=== PATIENT | male | born 1965 | race Caucasian/White ===

== ENCOUNTER 2018-03-13 09:08 | Emergency (ER) | payer OTHER ==
[~2018-03-13] VITALS: Ht 175.3 cm; Wt 105.7 kg
[~2018-03-13 09:08] MED LIST: ACETAMINOPHEN-1 EAC1 PO; CIPRO250 M1 PO; FLOMAX0.4 MG PO; IBUPROFEN 800800 M1 PO; KEFLEX500 MG PO; LATUDA20 MG PO; NOHOMEMEDICATIONS; OSELB75 PO; PERCOCET 5-3251 EACH PO; PROMETHAZINE D480 ML PO; TESSALON PERLE100 MG PO; ZOFRAN ODT4 MG PO
[2018-03-13 09:31] LABS: ABSOLUTE BASOPHILS 0.1 thou/uL (0.0-0.2); ABSOLUTE EOSINOPHILS 0.3 thou/uL (0.0-0.7); ABSOLUTE MONOCYTES 0.7 thou/uL (0.0-1.2); ABSOLUTE NEUTROPHILS 3.6 thou/uL (1.6-8.1); EOSINOPHILS 4.3 %; HEMATOCRIT 44.7 % (42.0-52.0); HEMOGLOBIN 15.6 gm/dL (14.0-18.0); LYMPHOCYTES 30.2 %; MCH 32.2 pg (26.0-34.0); MCHC 34.9 g/dL (28.0-37.0); MCV 92.2 fL (80.0-100.0); MPV 7.2 fl. (7.2-11.1); NUCLEATED RBCS 0 /100WBC; PLATELET COUNT* 188 thou/uL (150-400); POLYS 54.5 %; RBC 4.85 mil/uL (4.50-6.00); RDW-CV 12.9 % (10.5-14.5); WBC 6.7 thou/uL (4.0-11.0)
[2018-03-13 09:36] LABS: ANION GAP 9 mmol/L (7-16); BUN 19 mg/dL (7-18); CALCIUM 8.8 mg/dL (8.5-10.1); CHLORIDE 105 mmol/L (98-107); CO2 26 mmol/L (21-32); GLUCOSE 115 mg/dL (70-99); POTASSIUM 5.2 mmol/L (3.5-5.1); SODIUM 140 mmol/L (136-145)
[2018-03-13 09:43] LABS: ALBUMIN 3.9 g/dL (3.4-5.0); ALKALINE PHOSPHATASE 80 U/L (46-116); SGOT 26 U/L (15-37); SGPT 19 U/L (30-65); TOTAL BILIRUBIN 0.6 mg/dL (<0.1-1.0); TROPONIN-I LEVEL <0.06 ng/mL (<0.06)
[2018-03-13] MEDS ORDERED: AUGMENTIN 875-1 EACH PO (10:19)
[2018-03-13] MEDS ORDERED: ANTIVERT25 MG PO (10:19)
[2018-03-13 10:58] VITALS: BP 124/88
--- NOTE | 2018-03-14 13:26 | EKG ---
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: Bailey RODAS : 1965 Requested By: Edy Johnson Order Number: [id number] MD: Jone Sierra Measurements Intervals [place] Rate: 87 P: 52 VT: 154 QRS: -33 QRSD: 84 T: 44 QT: 369 QTc: 444 Interpretive Statements Sinus rhythm Left axis deviation Abnormal R-wave progression, late transition No previous ECG available for comparison Electronically Signed On 03-14-2018 13:25:53 CDT by Jone Sierra [email or web address] <ELECTRONICALLY SIGNED> By: Jone Sierra MD, MERGED WITH [facility] 03/14/18 1325 0910 9 Jone Sierra MD, FACC /EPI
== END 2018-03-13 10:59 | disposition home or self-care (01) ==
LOC: M.ERS 09:08
PROVIDERS: Emergency Medicine Emergency Medical Services
DX: H66.92 Otitis media, unspecified, left ear (principal); F20.0 Paranoid schizophrenia

== ENCOUNTER → 2018-07-31 | Outpatient (CLI) | payer OTHER ==
[~2018-07-31] MED LIST changes: +ANTIVERT25 MG PO; +AUGMENTIN 875-1 EACH PO
[2018-07-31 17:21] LABS: ABSOLUTE EOSINOPHILS 0.2 thou/uL (0.0-0.7); ABSOLUTE LYMPHOCYTES 2.4 thou/uL (0.8-5.3); ABSOLUTE MONOCYTES 0.6 thou/uL (0.0-1.2); ABSOLUTE NEUTROPHILS 4.2 thou/uL (1.6-8.1); BASOPHILS 0.6 %; EOSINOPHILS 2.3 %; HEMATOCRIT 41.9 % (42.0-52.0); HEMOGLOBIN 14.7 gm/dL (14.0-18.0); LYMPHOCYTES 32.4 %; MCV 91.4 fL (80.0-100.0); MONOCYTES 7.9 %; MPV 7.8 fl. (7.2-11.1); NUCLEATED RBCS 0 /100WBC; PLATELET COUNT* 210 thou/uL (150-400); POLYS 56.8 %; RBC 4.58 mil/uL (4.50-6.00); RDW-CV 12.7 % (10.5-14.5); WBC 7.5 thou/uL (4.0-11.0)
[2018-07-31 17:32] LABS: ALBUMIN 3.9 g/dL (3.4-5.0); ALKALINE PHOSPHATASE 72 U/L (46-116); ANION GAP 9 mmol/L (7-16); BUN 19 mg/dL (7-18); CALCIUM 8.6 mg/dL (8.5-10.1); CHLORIDE 105 mmol/L (98-107); CHOLESTEROL 137 mg/dL (<200); CO2 26 mmol/L (21-32); GLUCOSE 90 mg/dL (70-99); HDL CHOLESTEROL 30 mg/dL (>40); LDL CHOLESTEROL 45 mg/dL (<100); MAGNESIUM 1.8 mg/dL (1.8-2.4); POTASSIUM 4.1 mmol/L (3.5-5.1); SGOT 10 U/L (15-37); SGPT 21 U/L (30-65); SODIUM 140 mmol/L (136-145); TC:HDL 4.6 Ratio (Not establshd); TOTAL BILIRUBIN 0.3 mg/dL (<0.1-1.0); TOTAL PROTEIN 7.4 g/dL (6.4-8.2); TRIGLYCERIDE 312 mg/dL (<150); VLDL 62 mg/dL (<40)
[2018-07-31 17:52] LABS: SERUM ASSESSMENT Clear
[2018-08-01 03:09] LABS: GLYCOHEMOGLOBIN (HGB A1C) 5.1 % (4.8-5.6)
[2018-08-01 08:02] LABS: URINE BILIRUBIN NEGATIVE (Negative); URINE BLOOD NEGATIVE (Negative); URINE CLARITY SL CLOUDY; URINE COLOR YELLOW; URINE GLUCOSE-RANDOM NEGATIVE (Negative); URINE KETONES NEGATIVE (Negative); URINE LEUKOCYTES-REFLEX NEGATIVE (Negative); URINE NITRITE-REFLEX NEGATIVE (Negative); URINE PROTEIN NEGATIVE (Negative); URINE SPECIFIC GRAVITY >= 1.030 (1.005-1.030); URINE UROBILINOGEN 0.2 E.U./dl (0.2-1.0)
[2018-08-01 08:08] LABS: BACTERIA-REFLEX 1-9 Few /HPF (None Seen); CASTS None Seen /LPF (None Seen); MUCUS 0-3 Light strn/LPF (None Seen); SQUAMOUS 0-3 Few /LPF (0-3); URINE RBC 0-2 Rare /HPF (0-2); URINE WBC-REFLEX 0-5 Rare /HPF (0-5)
[2018-08-01 08:09] LABS: AMORPHOUS URATES Many /LPF (None Seen)
[2018-08-01 08:29] LABS: DIRECT BILIRUBIN 0.1 mg/dL (<0.1-0.3); PHOSPHORUS* 3.5 mg/dL (2.5-4.9)
[2018-08-01 19:07] LABS: T3 UPTAKE 24 % (24-39)
== END ==
LOC: M.LAB 16:03
PROVIDERS: Internal Medicine
DX: Z00.01 Encounter for general adult medical examination with abnormal findings (principal); G47.33 Obstructive sleep apnea (adult) (pediatric); R53.82 Chronic fatigue, unspecified

== ENCOUNTER → 2019-02-19 | Outpatient (CLI) | payer OTHER | LOC: M.RAD 10:24 | DX: R05 Cough (principal); R53.83 Other fatigue ==

== ENCOUNTER → 2020-01-15 | Outpatient (CLI) | payer OTHER | LOC: M.LAB 14:07 | DX: Z20.828 Contact with and (suspected) exposure to other viral communicable diseases (principal) ==

== ENCOUNTER 2020-04-13 20:46 | Emergency (ER) | payer OTHER ==
[~2020-04-13] VITALS: Ht 177.8 cm; Wt 103.4 kg
[2020-04-13] MEDS ORDERED: MELOXICAM7.5 MG PO (20:59)
[2020-04-13] MEDS ORDERED: CLONAZEPAM 0.50.5 M1 PO (21:14)
[2020-04-13] MEDS ORDERED: TYLENOL WITH CO1 TA1 PO (22:24)
[2020-04-13 22:33] VITALS: BP 122/67
== END 2020-04-13 22:33 | disposition home or self-care (01) ==
LOC: M.ERS 20:46
DX: S93.492A Sprain of other ligament of left ankle, initial encounter (principal); X50.1XXA Overexertion from prolonged static or awkward postures, initial encounter; Y93.89 Activity, other specified; Y92.89 Other specified places as the place of occurrence of the external cause; Y99.8 Other external cause status

== ENCOUNTER 2020-08-01 13:33 | Inpatient (IN) | payer OTHER ==
[~2020-08-01] VITALS: Ht 177.8 cm; Wt 101.2 kg
[~2020-08-01 13:33] MED LIST changes: +CLONAZEPAM 0.50.5 M1 PO; +MELOXICAM7.5 MG PO; +TYLENOL WITH CO1 TA1 PO
[2020-08-01 14:24] VITALS: BP 106/68
[2020-08-01] MEDS ORDERED: MOBIC7.5 MG PO (14:28)
[2020-08-01 15:08] LABS: ABSOLUTE EOSINOPHILS 0.2 thou/uL (0.0-0.7); ABSOLUTE LYMPHOCYTES 2.2 thou/uL (0.8-5.3); ABSOLUTE MONOCYTES 0.8 thou/uL (0.0-1.2); ABSOLUTE NEUTROPHILS 7.3 thou/uL (1.6-8.1); BASOPHILS 0.4 %; EOSINOPHILS 1.4 %; HEMATOCRIT 44.6 % (42.0-52.0); HEMOGLOBIN 15.9 gm/dL (14.0-18.0); LYMPHOCYTES 21.2 %; MCH 32.2 pg (26.0-34.0); MCHC 35.6 g/dL (28.0-37.0); MCV 90.5 fL (80.0-100.0); MONOCYTES 7.2 %; MPV 7.1 fl. (7.2-11.1); NUCLEATED RBCS 0 /100WBC; PLATELET COUNT* 219 thou/uL (150-400); POLYS 69.8 %; RBC 4.93 mil/uL (4.50-6.00); RDW-CV 12.8 % (10.5-14.5); WBC 10.5 thou/uL (4.0-11.0)
[2020-08-01 15:20] LABS: CALCIUM 9.8 mg/dL (8.5-10.1); CREATININE 1.2 mg/dL (0.6-1.3); POTASSIUM 4.3 mmol/L (3.5-5.1)
[2020-08-01 15:26] LABS: APTT 23.1 Seconds (25.0-31.3); PROTIME 10.6 Seconds (9.20-11.50)
[2020-08-01 15:31] LABS: ALBUMIN 4.1 g/dL (3.4-5.0); TOTAL BILIRUBIN 0.6 mg/dL (<0.1-1.0)
[2020-08-01 16:47] LABS: INFLUENZA A ANTIGEN Negative (Negative); INFLUENZA B ANTIGEN Negative (Negative)
--- NOTE | 2020-08-01 16:58 | NUR ---
PROVIDER NOTIFIED OF PT REQUEST FOR PAIN MEDS
[2020-08-01 18:57] LABS: AMP/METHAMP Negative (Negative); BARBITURATES Negative (Negative); BENZODIAZEPINES Negative (Negative); COCAINE Negative (Negative); METHADONE Negative (Negative); OPIATES Negative (Negative); PCP Negative (Negative); THC Negative (Negative)
--- NOTE | 2020-08-01 19:00 | NUR ---
RN WENT INTO ROOM TO REASSESS PT, AND PT EXPRESSED WISH TO GO HOME. RN EXPLAINED TO PT NEED TO STAY. PT REPORTS THAT HE WOULD STILL LIKE TO GO HOME. DR. BOWIE INFORMED AND STATES PT WOULD NEED TO SIGN AMA. PT WENT BACK INTO PT'S ROOM AND EXPRESSED CONCERN FOR PT LEAVING. PT REPORTS HE WOULD CALL HIS FOR ADVICE.
[2020-08-01 20:52] VITALS: BP 129/80
[2020-08-02 02:55] LABS: ABSOLUTE EOSINOPHILS 0.2 thou/uL (0.0-0.7); ABSOLUTE LYMPHOCYTES 2.6 thou/uL (0.8-5.3); ABSOLUTE MONOCYTES 0.6 thou/uL (0.0-1.2); ABSOLUTE NEUTROPHILS 3.9 thou/uL (1.6-8.1); BASOPHILS 0.6 %; EOSINOPHILS 3.3 %; HEMATOCRIT 39.4 % (42.0-52.0); LYMPHOCYTES 35.7 %; MCH 31.8 pg (26.0-34.0); MCHC 35.2 g/dL (28.0-37.0); MCV 90.3 fL (80.0-100.0); MONOCYTES 7.9 %; MPV 7.2 fl. (7.2-11.1); NUCLEATED RBCS 0 /100WBC; PLATELET COUNT* 170 thou/uL (150-400); POLYS 52.5 %; RBC 4.36 mil/uL (4.50-6.00); RDW-CV 12.8 % (10.5-14.5); WBC 7.4 thou/uL (4.0-11.0)
[2020-08-02 02:58] LABS: CALCIUM 8.5 mg/dL (8.5-10.1)
[2020-08-02 03:08] LABS: HEMOGLOBIN 13.8 gm/dL (14.0-18.0)
[2020-08-02 03:29] VITALS: BP 107/70
[2020-08-02 04:00] VITALS: BP 118/76
--- NOTE | 2020-08-02 07:46 | NUR ---
PT ARRIVED FROM ED AT 0340. 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 HOURLY ROUNDING COMPLETED. CALL LIGHT WITHIN REACH.
[2020-08-02 08:00] VITALS: BP 130/86
--- NOTE | 2020-08-02 09:46 | NUR ---
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 NO D/C PLANNING NEEDS ANTICIPATED. HOWEVER CM WILL CONTINUE TO FOLLOW THIS PT TO ASSIST WITH D/C PLANNING NEEDED.
[2020-08-02] MEDS ORDERED: FLECAINIDE ACET50 M1 PO (11:26)
[2020-08-02 12:38] VITALS: BP 136/76
--- NOTE | 2020-08-02 13:27 | EKG ---
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 Mechanic: : 1965 Requested By: Jessica Barnett Order Number: [id number] Joselin MD: Miguel Ángel Guajardo Measurements Intervals [place] Rate: 68 P: 34 [place]: 184 QRS: 3 QRSD: 99 T: 54 QT: 444 QTc: 473 Interpretive Statements Sinus rhythm Compared to ECG 03/13/2018 09:10:19 Left-axis deviation no longer present Electronically Signed On 08-02-2020 13:27:33 AIR TRAFFIC CONTROL EQUIPMENT REPAIRER by Miguel Ángel Guajardo [email or web address] <ELECTRONICALLY SIGNED> By: Miguel Ángel Guajardo MD, FACC 08/02/20 1327 0853 0853 Miguel Ángel Guajardo MD, FACC /EPI
--- NOTE | 2020-08-02 16:09 | EKG ---
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: TDS : 1965 Requested By: Erin Nelson Order Number: [id number] MD: Kamari Alford Measurements Intervals [place] Rate: 153 P: 0 VA: 71 QRS: -30 QRSD: 87 T: -4 QT: 310 QTc: 495 Interpretive Statements Probable atrial flutter with 2-1 AV block Left axis deviation Abnormal R-wave progression, late transition Repol abnrm suggests ischemia, diffuse leads Compared to ECG 03/13/2018 09:10:19 Early repolarization now present Possible ischemia now present Sinus rhythm no longer present Electronically Signed On 08-02-2020 16:09:36 BREWERY CELLAR WORKER by Kamari Alford [email or web address] <ELECTRONICALLY SIGNED> By: Kamari Alford MD, [facility] 08/02/20 1609 1433 1433 Kamair Alford MD, [facility] /EPI
[2020-08-02 16:16] VITALS: BP 103/74
[2020-08-02 18:18] VITALS: BP 103/74
--- NOTE | 2020-08-02 19:04 | EXE ---
[place] [address] STRESS ECHOCARDIOGRAM Name: JACQUELIN MOONEY Room: [address] IN ..#: [id number] Admission: 08/01/20 Attend Phys: Armando Mitchell, Discharge: 08/02/20 Date of : 67 Date of Service: 08/02/20 1904 Report #: [id number] THIS REPORT FOR: cc: Ansley Perales Tammy RNP Liston, Michael J. MD [facility] ~ APPROVED REPORT Study performed: 08/02/2020 16:15:04 Exam: Stress Echocardiogram Indication: Chest pain , Palpitations Patient Location: In-Patient Stress Nurse: Katia Hoang RN Room #: 223 Supervising Physician: Miguel Ángel Guajardo MD Status: routine Ht: 5 ft 10 in HR: 86 bpm BP: 133/75 mmHg Rhythm: NSR Medical History Medications: Tambocor, Hydralazine Allergies: No known drug allergies Cardiac Risk Factors: FHX of CAD, age Procedure The patient underwent an Exercise Stress Test using the Samuel Protocol. Blood pressure, heart rate, and EKG were monitored. An Echocardiogram was performed by boiler testing technician in four stages in quad fashion. At peak stress, four selected images were obtained and placed side by side with resting images for comparison. Stress Test Details Stress Test: Exercise stress testing was performed using a Samuel protocol. HR Resting HR: 86 bpm Max Heart Rate (APMHR): 167 bpm Max HR Achieved: 162 bpm Target HR (85% APMHR): 141 bpm % of APMHR: 97 Recovery HR: 105 bpm HR response to stress: [place] [address] STRESS ECHOCARDIOGRAM Name: JACQUELIN MOONEY Room: [address]#: [id number] Admission: 08/01/20 Attend Phys: Armando Mitchell, Discharge: 08/02/20 Date of : 67 Date of Service: 08/02/20 1904 Report #: [id number] Resting BP: 133/75 mmHg Max BP: 247/95 mmHg Recovery BP: 147/74 mmHg BP response to stress: Normal blood pressure response to stress. ECG Resting ECG: Sinus Rhythm Stress ECG: Sinus Tachycardia ST Change: None Arrhythmia: None Recovery ECG: Sinus Rhythm Recovery ST Change: None Recovery Arrhythmia: None Clinical Reason for Termination: Maximal effort Stress Symptoms: none Exercise duration: 9 min 49 sec Highest Stage Achieved: Stage 4: 4.2 mph at 16% grade. Exercise capacity: 11.46 METs Patient tolerated standard Samuel protocol exercise without significant cardiac symptoms. He evidenced normal exercise tolerance. Stress ECG Conclusion The baseline twelve-lead EKG shows sinus rhythm without significant ST segment or T wave abnormality. EKGs obtained during and after exercise stress show sinus rhythm and sinus tachycardia with no significant ST segment or T wave changes when compared to baseline. There were no stress-induced arrhythmias. Pre-Stress Echo The resting Echocardiogram showed normal left ventricular contractility with an estimated Ejection Fraction of about 60-65%. The resting echocardiogram demonstrated normal wall motion in all wall segments. Post-Stress Echo The stress Echocardiogram showed normal left ventricular contractility with an estimated Ejection Fraction of about >70%. Compared to rest, there were no stress-induced wall motion abnormalities. Conclusion Clinical Response: [place] [address] STRESS ECHOCARDIOGRAM Name: JACQUELIN MOONEY Room: [address]#: [id number] Admission: 08/01/20 Attend Phys: Armando Mitchell, Discharge: 08/02/20 Date of : 67 Date of Service: 08/02/201903 Report #: [id number] Exercise Capacity: Average Stress ECG Response: Non-ischemic Stress Echo Images: Non-ischemic Other Information Study Quality: Good <ELECTRONICALLY SIGNED> By: Miguel Ángel Guajardo MD, FACC 08/02/201903 03 1904 Miguel Ángel Guajardo MD, FACC /INF
--- NOTE | 2020-08-02 19:11 | NUR ---
PT. AOX4, VSS, DENIES PAIN OR DISCOMFORT, SR ON MONITOR, STRESS ECHO NORMAL PER JD SEGURA DIVISION COMMANDER AND OK TO GO HOME. DC PACKET PROVIDED AND EXPLAINED TO PT. AND . PT. LEFT UNIT BY WHEELCHAIR WITH , IN STABLE CONDITION.
== END 2020-08-02 18:48 | disposition home or self-care (01) | DRG 310 ==
LOC: M.ERS 13:33 → M.2W 16:04 → M.TBA-ER 16:04 → M.2W 08-02 03:43
PROVIDERS: Emergency Medicine Emergency Medical Services; Nurse Practitioner Family; ADMIT Internal Medicine; ATTEND Internal Medicine
DX: I48.92 Unspecified atrial flutter (principal); F20.9 Schizophrenia, unspecified; F41.9 Anxiety disorder, unspecified; G47.30 Sleep apnea, unspecified; Z20.828 Contact with and (suspected) exposure to other viral communicable diseases; Z28.21 Immunization not carried out because of patient refusal; Z79.899 Other long term (current) drug therapy

== ENCOUNTER → 2020-08-17 | Outpatient (CLI) | payer OTHER ==
[~2020-08-17] MED LIST changes: +FLECAINIDE ACET50 M1 PO; +MOBIC7.5 MG PO
[2020-08-17 10:11] LABS: CHOLESTEROL 158 mg/dL (<200); HDL CHOLESTEROL 34 mg/dL (>40); LDL CHOLESTEROL 100 mg/dL (<100); SERUM ASSESSMENT Clear; TC:HDL 4.6 Ratio (Not establshd); TRIGLYCERIDE 123 mg/dL (<150); VLDL 25 mg/dL (<40)
== END ==
LOC: M.LAB 09:29
PROVIDERS: ATTEND Registered Nurse Diabetes Educator
DX: Z20.828 Contact with and (suspected) exposure to other viral communicable diseases (principal); Z13.220 Encounter for screening for lipoid disorders; I48.92 Unspecified atrial flutter

== ENCOUNTER 2020-09-04 20:03 | Emergency (ER) | payer OTHER ==
[~2020-09-04] VITALS: Ht 180.3 cm; Wt 104.3 kg
[2020-09-04 20:46] LABS: ABSOLUTE BASOPHILS 0.1 thou/uL (0.0-0.2); ABSOLUTE EOSINOPHILS 0.3 thou/uL (0.0-0.7); ABSOLUTE LYMPHOCYTES 2.1 thou/uL (0.8-5.3); ABSOLUTE MONOCYTES 0.6 thou/uL (0.0-1.2); ABSOLUTE NEUTROPHILS 4.1 thou/uL (1.6-8.1); BASOPHILS 0.8 %; EOSINOPHILS 4.1 %; HEMATOCRIT 39.1 % (42.0-52.0); HEMOGLOBIN 14.1 gm/dL (14.0-18.0); LYMPHOCYTES 29.9 %; MCH 32.5 pg (26.0-34.0); MCV 90.4 fL (80.0-100.0); MONOCYTES 7.9 %; MPV 6.7 fl. (7.2-11.1); NUCLEATED RBCS 0 /100WBC; PLATELET COUNT* 181 thou/uL (150-400); POLYS 57.3 %; RBC 4.33 mil/uL (4.50-6.00); RDW-CV 12.4 % (10.5-14.5); WBC 7.1 thou/uL (4.0-11.0)
[2020-09-04 20:54] LABS: CALCIUM 8.4 mg/dL (8.5-10.1); CREATININE 1.2 mg/dL (0.6-1.3)
[2020-09-04 20:55] LABS: POTASSIUM 4.5 mmol/L (3.5-5.1)
[2020-09-04 20:58] LABS: APTT 24.1 Seconds (25.0-31.3); PROTIME 10.7 Seconds (9.20-11.50)
[2020-09-04 20:59] LABS: ALBUMIN 3.4 g/dL (3.4-5.0); TOTAL BILIRUBIN 0.3 mg/dL (<0.1-1.0); TOTAL PROTEIN 6.8 g/dL (6.4-8.2)
[2020-09-04 23:17] VITALS: BP 131/78
--- NOTE | 2020-09-05 15:12 | EKG ---
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: MD : 1965 Requested By: Malena Mason Order Number: [id number] MD: Kamari Alford Measurements Intervals [place] Rate: 78 P: -1 [place]: 175 QRS: -20 QRSD: 93 T: 49 QT: 393 QTc: 448 Interpretive Statements Sinus rhythm Probable left atrial enlargement Borderline left axis deviation; consider left anterior hemiblock Baseline wander in lead(s) V4,V5,V6 Compared to ECG 08/02/2020 08:53:08 No significant changes Electronically Signed On 09-05-2020 15:11:46 PEER COUNSELOR by Kamari Alford [email or web address] <ELECTRONICALLY SIGNED> By: Kamari Alford MD, FAC 09/05/20 1511 05 05 Kamari Alford MD, FAC /EPI
== END 2020-09-04 23:18 | disposition home or self-care (01) ==
LOC: M.ERS 20:03
PROVIDERS: Personal Emergency Response Attendant
DX: R07.89 Other chest pain (principal); Z20.828 Contact with and (suspected) exposure to other viral communicable diseases

== ENCOUNTER → 2020-11-03 | Outpatient (CLI) | payer OTHER ==
[2020-11-03 16:17] LABS: ABSOLUTE BASOPHILS 0.1 thou/uL (0.0-0.2); ABSOLUTE EOSINOPHILS 0.2 thou/uL (0.0-0.7); ABSOLUTE LYMPHOCYTES 2.1 thou/uL (0.8-5.3); ABSOLUTE MONOCYTES 0.6 thou/uL (0.0-1.2); ABSOLUTE NEUTROPHILS 3.9 thou/uL (1.6-8.1); BASOPHILS 0.9 %; EOSINOPHILS 3.3 %; HEMOGLOBIN 15.2 gm/dL (14.0-18.0); LYMPHOCYTES 30.6 %; MCH 31.8 pg (26.0-34.0); MCHC 35.3 g/dL (28.0-37.0); MPV 6.7 fl. (7.2-11.1); NUCLEATED RBCS 0 /100WBC; PLATELET COUNT* 200 thou/uL (150-400); POLYS 57.2 %; RBC 4.77 mil/uL (4.50-6.00); RDW-CV 12.5 % (10.5-14.5); WBC 6.9 thou/uL (4.0-11.0)
[2020-11-03 16:25] LABS: CREATININE 1.1 mg/dL (0.6-1.3); POTASSIUM 4.3 mmol/L (3.5-5.1)
== END ==
LOC: M.LAB 15:58
PROVIDERS: ATTEND Registered Nurse Diabetes Educator
DX: I48.92 Unspecified atrial flutter (principal); R00.2 Palpitations; R79.89 Other specified abnormal findings of blood chemistry; R53.83 Other fatigue; I10 Essential (primary) hypertension; Z68.32 Body mass index [BMI] 32.0-32.9, adult; Z79.899 Other long term (current) drug therapy

== ENCOUNTER → 2020-11-29 | Outpatient (CLI) | payer OTHER ==
--- NOTE | 2020-12-20 13:57 | SLEEP ---
[address] [address] SLEEP STUDY REPORT Name: JACQUELIN MOONEY JR Room: [facility]#: [id number] Admission: 11/29/20 Attend Phys: DOUGIE William Discharge: Date of : 67 Report #: [id number] THIS REPORT FOR: cc: Ansley Perales Tammy RNP ~ Israel Alvares MD This study has been reviewed in its entirety by a board certified sleep specialist DATE OF SERVICE: 12/01/2020 HOME SLEEP STUDY INTERPRETATION: Total duration of the study is 379 minutes. During this time period, we did record multiple sleep-related respiratory events. These included 14 obstructive apneas in addition to 1 central apnea and 30 hypopneas. The overall apnea-hypopnea index is mildly elevated to 7.6. The patient is noted to be lying on his right side throughout the sleep study. We also did record multiple desaturations. Overall, the patient spent 11.7 minutes below an O2 saturation of 90%. The lowest recorded O2 saturation was 82, 1.8 minutes were spent below an O2 saturation of 88%. Mean heart rate was 74. IMPRESSION: Mild obstructive sleep apnea with an apnea-hypopnea index of 7.6 and mild nocturnal hypoxemia as described above. The patient is noted to be lying on the right side throughout the sleep study. RECOMMENDATIONS: I recommend proceeding with positive airway pressure therapy. Options include the use of a CPAP auto titrated device or proceeding with an in-lab sleep study for positive airway pressure titration. Clinical correlation is advised. In some selected patients, the use of a mandibular advancement device can also be considered. However, it is likely to be less effective. <ELECTRONICALLY SIGNED> By: Israel Alvares MD 12/20/20 1357 1323 [id number] Alvares MD /nt
== END ==
LOC: M.PUL 08:53
PROVIDERS: ATTEND Registered Nurse Diabetes Educator
DX: G47.33 Obstructive sleep apnea (adult) (pediatric) (principal); R09.02 Hypoxemia; I48.92 Unspecified atrial flutter; I10 Essential (primary) hypertension; R53.83 Other fatigue; R40.0 Somnolence; R06.83 Snoring; Z68.32 Body mass index [BMI] 32.0-32.9, adult

== ENCOUNTER 2021-01-19 14:45 | Emergency (ER) | payer OTHER ==
[~2021-01-19] VITALS: Ht 177.8 cm; Wt 106.6 kg
[2021-01-19] MEDS ORDERED: HYDROCODON-ACE1 EAC7 PO (16:14)
[2021-01-19 16:41] VITALS: BP 124/90
== END 2021-01-19 16:42 | disposition home or self-care (01) ==
LOC: M.ERS 14:45
DX: S93.492A Sprain of other ligament of left ankle, initial encounter (principal); X50.1XXA Overexertion from prolonged static or awkward postures, initial encounter; Y93.89 Activity, other specified; Y92.89 Other specified places as the place of occurrence of the external cause; Y99.0 Civilian activity done for income or pay

== ENCOUNTER → 2021-03-14 | Outpatient (CLI) | payer OTHER ==
[~2021-03-14] MED LIST changes: +HYDROCODON-ACE1 EAC7 PO
[2021-03-14 11:40] LABS: ABSOLUTE EOSINOPHILS 0.2 thou/uL (0.0-0.7); ABSOLUTE LYMPHOCYTES 2.1 thou/uL (0.8-5.3); ABSOLUTE MONOCYTES 0.6 thou/uL (0.0-1.2); ABSOLUTE NEUTROPHILS 4.4 thou/uL (1.6-8.1); BASOPHILS 0.7 %; EOSINOPHILS 2.5 %; HEMATOCRIT 41.5 % (42.0-52.0); HEMOGLOBIN 14.9 gm/dL (14.0-18.0); LYMPHOCYTES 28.4 %; MCH 32.7 pg (26.0-34.0); MCHC 35.9 g/dL (28.0-37.0); MCV 91.1 fL (80.0-100.0); MONOCYTES 8.8 %; MPV 6.5 fl. (7.2-11.1); NUCLEATED RBCS 0 /100WBC; PLATELET COUNT* 201 thou/uL (150-400); POLYS 59.6 %; RBC 4.55 mil/uL (4.50-6.00); RDW-CV 12.5 % (10.5-14.5); WBC 7.3 thou/uL (4.0-11.0)
[2021-03-14 11:55] LABS: ALBUMIN 3.9 g/dL (3.4-5.0); ALKALINE PHOSPHATASE 83 U/L (46-116); ANION GAP 8 mmol/L (7-16); BUN 18 mg/dL (7-18); CALCIUM 9.3 mg/dL (8.5-10.1); CHLORIDE 106 mmol/L (98-107); CHOLESTEROL 159 mg/dL (<200); CO2 28 mmol/L (21-32); DIRECT BILIRUBIN 0.1 mg/dL (<0.1-0.3); GLUCOSE 94 mg/dL (70-99); POTASSIUM 4.2 mmol/L (3.5-5.1); SGOT 16 U/L (15-37); SGPT 25 U/L (30-65); SODIUM 142 mmol/L (136-145); TOTAL BILIRUBIN 0.2 mg/dL (<0.1-1.0); TOTAL PROTEIN 7.3 g/dL (6.4-8.2); TRIGLYCERIDE 326 mg/dL (<150); VLDL 65 mg/dL (<40)
[2021-03-14 11:57] LABS: SERUM ASSESSMENT Clear
[2021-03-14 12:06] LABS: HDL CHOLESTEROL 36 mg/dL (>40); LDL CHOLESTEROL 58 mg/dL (<100); TC:HDL 4.4 Ratio (Not establshd)
[2021-03-15 02:06] LABS: GLYCOHEMOGLOBIN (HGB A1C) 5.2 % (4.8-5.6)
[2021-03-15 16:07] LABS: % FREE PSA 15.9 % (()); FREE PSA 0.43 ng/mL
== END | disposition home or self-care (01) ==
LOC: M.LAB 11:22
PROVIDERS: ATTEND Registered Nurse Diabetes Educator
DX: Z12.5 Encounter for screening for malignant neoplasm of prostate (principal); R79.89 Other specified abnormal findings of blood chemistry; Z79.899 Other long term (current) drug therapy; I10 Essential (primary) hypertension; Z13.1 Encounter for screening for diabetes mellitus; Z13.220 Encounter for screening for lipoid disorders; E55.9 Vitamin D deficiency, unspecified; Z68.32 Body mass index [BMI] 32.0-32.9, adult

== ENCOUNTER → 2021-06-15 | Outpatient (CLI) | payer OTHER ==
[2021-06-15 09:13] LABS: CHOLESTEROL 139 mg/dL (<200); HDL CHOLESTEROL 35 mg/dL (>40); LDL CHOLESTEROL 62 mg/dL (<100); SGOT 14 U/L (15-37); SGPT 26 U/L (30-65); TRIGLYCERIDE 212 mg/dL (<150); VLDL 42 mg/dL (<40)
[2021-06-15 09:18] LABS: SERUM ASSESSMENT Clear
== END ==
LOC: M.LAB 08:46
PROVIDERS: ATTEND Registered Nurse Diabetes Educator
DX: R89.9 Unspecified abnormal finding in specimens from other organs, systems and tissues (principal)

== ENCOUNTER → 2021-09-13 | Outpatient (CLI) | payer OTHER ==
[2021-09-13 10:39] LABS: HEMATOCRIT 42.7 % (42.0-52.0); HEMOGLOBIN 14.8 gm/dL (14.0-18.0); MCH 31.6 pg (26.0-34.0); MCHC 34.6 g/dL (28.0-37.0); MCV 91.1 fL (80.0-100.0); MPV 6.8 fl. (7.2-11.1); NUCLEATED RBCS 0 /100WBC; PLATELET COUNT* 186 thou/uL (150-400); RBC 4.68 mil/uL (4.50-6.00); RDW-CV 12.6 % (10.5-14.5); WBC 6.2 thou/uL (4.0-11.0)
[2021-09-13 11:30] LABS: ABSOLUTE EOSINOPHILS 0.2 thou/uL (0.0-0.7); ABSOLUTE MONOCYTES 0.4 thou/uL (0.0-1.2); ABSOLUTE NEUTROPHILS 3.5 thou/uL (1.6-8.1); PLATELET ESTIMATE ADEQUATE
[2021-09-13 17:13] LABS: ALBUMIN 3.6 g/dL (3.4-5.0); ALKALINE PHOSPHATASE 66 U/L (46-116); ANION GAP 7 mmol/L (7-16); BUN 19 mg/dL (7-18); CALCIUM 8.5 mg/dL (8.5-10.1); CHLORIDE 107 mmol/L (98-107); CO2 27 mmol/L (21-32); CREATININE 1.1 mg/dL (0.6-1.3); DIRECT BILIRUBIN 0.1 mg/dL (<0.1-0.3); GLUCOSE 99 mg/dL (70-99); POTASSIUM 4.3 mmol/L (3.5-5.1); SGOT 20 U/L (15-37); SGPT 31 U/L (30-65); SODIUM 141 mmol/L (136-145); TOTAL BILIRUBIN 0.5 mg/dL (<0.1-1.0); TOTAL PROTEIN 7.1 g/dL (6.4-8.2)
[2021-09-13 17:28] LABS: CHOLESTEROL 182 mg/dL (<200); HDL CHOLESTEROL 41 mg/dL (>40); LDL CHOLESTEROL 112 mg/dL (<100); SERUM ASSESSMENT Clear; TC:HDL 4.4 Ratio (Not establshd); TRIGLYCERIDE 149 mg/dL (<150); VLDL 30 mg/dL (<40)
[2021-09-14 07:08] LABS: GLYCOHEMOGLOBIN (HGB A1C) 5.6 % (4.8-5.6)
== END ==
LOC: M.LAB 10:15
PROVIDERS: ATTEND Registered Nurse Diabetes Educator
DX: Z13.1 Encounter for screening for diabetes mellitus (principal); Z13.220 Encounter for screening for lipoid disorders; I10 Essential (primary) hypertension; E55.9 Vitamin D deficiency, unspecified; R79.89 Other specified abnormal findings of blood chemistry; Z79.899 Other long term (current) drug therapy; Z68.32 Body mass index [BMI] 32.0-32.9, adult

== ENCOUNTER → 2021-09-27 | Outpatient (CLI) | payer OTHER | LOC: M.LAB 09:30 | PROVIDERS: ATTEND Internal Medicine Gastroenterology | DX: Z01.812 Encounter for preprocedural laboratory examination (principal); Z20.822 Contact with and (suspected) exposure to COVID-19 ==